=== PATIENT | female | born 1980 | race African-American/Black ===

== ENCOUNTER 2022-01-11 21:56 | Emergency (ER) | payer MEDICAID ==
[~2022-01-11] VITALS: Ht 160 cm; Wt 64.9 kg
--- NOTE | 2022-01-11 22:20 | NUR ---
TO ER BED FROM HOME C/O ABD PAIN X TODAY "SUDDEN CRAMPING". 06/09 ON P/S. DENIES ANY CHEST PAIN. CHANGED INTO GOWN. CONNECTED TO MONITOR. AWAITING MD CAVANAUGH
[2022-01-11] MEDS ORDERED: ONDANSETRON HCL/PF 4 MG/2 ML VIAL ONE (22:53)
[2022-01-11] MEDS ORDERED: DICYCLOMINE HCL 10 MG CAPSULE PO ONE ×2 (22:53→23:00)
[2022-01-11] MEDS ORDERED: ONDANSETRON HCL/PF 4 MG/2 ML VIAL IVP ONE (23:00)
[2022-01-11] MEDS ORDERED: IV NS 0.9% 1,000 ML BAG IV ONE (23:00)
--- NOTE | 2022-01-11 23:00 | NUR ---
20G IV LINE ESTABLISHED AT . BLOOD DRAWN AND SENT TO LAB
[2022-01-11 23:13] LABS: BASOPHILS % (AUTO) 0.4 % (0.0-2.0); EOSINOPHILS % (AUTO) 1.1 % (0.0-6.0); HEMATOCRIT 41 % (33-45); LYMPHOCYTES # (AUTO) 1.1 K/uL (0.8-4.8); LYMPHOCYTES % (AUTO) 15.5 % (20.0-44.0); MEAN CORPUSCULAR HGB CONC 34 g/dl (31.0-36.0); MEAN CORPUSCULAR VOLUME 101 fL (82-100); MONOCYTES # (AUTO) 0.4 K/uL (0.1-1.30); MONOCYTES % (AUTO) 5.1 % (2.0-12.0); NEUTROPHILS # (AUTO) 5.7 K/uL (1.8-8.9); NEUTROPHILS % (AUTO) 77.9 % (43.0-81.0); PLATELET COUNT (AUTO) 252 K/uL (150-450); RED BLOOD CELL COUNT(AUTO) 4.11 MIL/uL (4.0-5.2); WHITE BLOOD COUNT (AUTO) 7.3 K/uL (4.3-11.0)
[2022-01-11 23:22] LABS: CALCIUM, SERUM 9.1 mg/dL (8.5-10.1); CREATININE 0.9 mg/dL (0.6-1.3); POTASSIUM 5.3 mmol/L (3.5-5.1)
[2022-01-12] MEDS ORDERED: ONDA4TAB5 PO (01:09)
[2022-01-12] MEDS ORDERED: DICY20TA11 PO (01:09)
--- NOTE | 2022-01-12 01:17 | NUR ---
Patient discharged to home in stable condition. Written and verbal after care instructions given. Patient verbalizes understanding of instruction. IV line removed and PT ambulatory with steady gait.
[2022-01-12 01:18] VITALS: BP 123/67
== END 2022-01-12 01:18 | disposition home or self-care (01) ==
LOC: ER 22:06
DX: R55 Syncope and collapse (principal)
CPT/HCPCS: 36415; 80048; 84702; 85025; 93005; 96360; 99284; J2405; J7030